=== PATIENT | male | born 1975 | race Caucasian/White ===

== ENCOUNTER 2016-05-15 09:54 | Day surgery (SDC) | payer BC, OTHER ==
[~2016-05-15 09:54] MED LIST: Pre Op ABX Message 1 EACH MISC MISCELLANE ONE
[2016-05-15 10:44] VITALS: BMI 46.1
[2016-05-15 10:45] LABS: Glucose,Whole Blood 136 mg/dL (75-99)
[2016-05-15] MEDS ORDERED: LACTATED RINGERS 1,000 ML IV SCH (10:55)
[2016-05-15] MEDS ORDERED: ONDANSETRON 4 MG/2 ML VIAL IVP ONE (10:55)
[2016-05-15] MEDS ORDERED: HYDROmorphone 1 MG/ML 1 ML SYRINGE IVP PRN (10:55)
[2016-05-15] MEDS ORDERED: DEXAMETHASONE SOD PHOSPHATE 10 MG/ML 1 ML VIAL IV ONE (10:55)
[2016-05-15] MEDS ORDERED: BUPIVACAINE LIPOSOME/PF 1.3% 20 ML, SODIUM CHLORIDE 0.9% 10 ML MISCELLANE ONE ×2 (10:55)
[2016-05-15] MEDS ORDERED: LIDOCAINE 1% 20 ML VIAL (10MG/ML) FOR IV START INTRADERMA ONE (10:59)
[2016-05-15] MEDS ORDERED: fentaNYL (PF) 50 MCG/ML 2 ML AMP ONE (13:54)
[2016-05-15] MEDS ORDERED: MIDAZOLAM 2 MG/2 ML VIAL ONE (13:54)
[2016-05-15] MEDS ORDERED: SUCCINYLCHOLINE CHLORIDE VIAL 200 MG/10 ML VIAL IV ONE (13:54)
[2016-05-15] MEDS ORDERED: PROPOFOL 10 MG/ML 20 ML VIAL IV ONE (13:54)
--- NOTE | 2016-05-15 14:39 | P.OP ---
Date of Procedure: 05/15/16 Preoperative Diagnosis: Perianal pain due to to anal fissure Postoperative Diagnosis: Anal fissure 5 o'clock position 3 mm long exposed muscle no obvious fistula Right posterior second-degree hemorrhoid not bleeding Procedure(s) Performed: Under anesthesia and infiltration of 30 mL of Exparel Anesthesia: CHIP Surgeon: Leilani Peres Pathology: none sent Condition: stable Disposition: PACU Operative Findings: Small 3 mm anal fissure 5 o'clock position secondary to right in the right posterior position of bleeding and small. Normal anal sphincter tone Description of Procedure: Patient 41-year-old male with severe painful bowel movements as been using multiple medical therapy for his anal fissure which was suspected due to inability to perform digital rectal examination. Since we were never able to confirm and I consented the patient for examining her anesthesia. After draining from simple patient was brought to the operating room placed in supine position given general anesthesia after which she was placed in the appropriate prone position. He is prepped and draped in the usual sterile surgical fashion . A well-lubricated speculum was introduced and the perianal region all the way up to the dentate now was inspected in detail. There was a 3 mm anal fissure at 5 o'clock position without any pus or bleeding or any swelling or any inflammatory changes. There was a small right posterior secondary hemorrhoids which was not bleeding. It was not amenable to banding at this time. The entire internal sphincter area was then infiltrated with Exparel 30 mL service to remove the pain. The patient did not give any consent for sphincterotomy of any sort. After this the procedure was completed and a Vaseline dressing was placed in the anus. Operation or procedure well there were no complications extubated taken to recovery room in stable condition.
[2016-05-15 15:17] VITALS: TEMP 97.9
[2016-05-15] MEDS ORDERED: KETOROLAC 30 MG/ML 1 ML VIAL IVP ONE (15:23)
[2016-05-15 15:49] LABS: Glucose,Whole Blood 174 mg/dL (75-99)
[2016-05-15 20:25] VITALS: BP 103/60; PULSE 91
[2016-05-15 20:28] VITALS: RESP 16
== END 2016-05-15 18:04 | disposition home or self-care (01) ==
LOC: OR 09:54
PROVIDERS: ATTEND Surgery
DX: K60.2 Anal fissure, unspecified (principal); K64.1 Second degree hemorrhoids; E11.9 Type 2 diabetes mellitus without complications; G47.33 Obstructive sleep apnea (adult) (pediatric); Z79.84 Long term (current) use of oral hypoglycemic drugs; Z79.1 Long term (current) use of non-steroidal anti-inflammatories (NSAID); Z79.891 Long term (current) use of opiate analgesic; Z79.899 Other long term (current) drug therapy; Z88.0 Allergy status to penicillin
CPT/HCPCS: 45990; J2250; J0330; J1100; J2405; J3010; J1885; C9290; J2704

== ENCOUNTER 2020-01-07 10:00 | Inpatient (IN) | payer OTHER ==
--- NOTE | 2020-01-07 11:06 | ED ---
URI HPI - General Chief Complaint: Upper Respiratory Infection Stated Complaint: SOB Time Seen by Provider: 01/07/20 10:11 Source: patient, RN notes reviewed Mode of arrival: wheelchair Limitations: no limitations - History of Present Illness Initial Comments: This a 44-year-old male presents emergency Department chief complaint of fever, fatigue, body aches and shortness of breath. Patient states that he has been sick since last week. Patient states the taking vitamins at home, taken Tylenol states that symptoms progressively worsening. He's had increased shortness breath. Patient states he is a known diabetic on metformin. Patient's blood s ugar has been between 1:30 and 150. He has had known sick contacts with similar symptoms. Denies any current chest pain he's had some dizziness and mild headaches. - Related Data Home Medications Medication Instructions Recorded Confirmed metFORMIN HCL [Glucophage] 500 mg PO BID 05/15/16 01/07/20 Ascorbic Acid [Vitamin C] 3,000 mg PO DAILY 01/07/20 01/07/20 Cholecalciferol [Vitamin D3 (25 3,000 unit PO DAILY 01/07/20 01/07/20 Mcg = 1000 Iu)] Multivitamins, Thera [Multivitamin 1 tab PO DAILY 01/07/20 01/07/20 (formulary)] Potassium Gluconate 99 mg PO DAILY 01/07/20 01/07/20 Allergies Allergy/AdvReac Type Severity Reaction Status Date / Time Penicillins Allergy Rash/Hives Verified 01/07/20 12:20 Review of Systems ROS Statement: Those systems with pertinent positive or pertinent negative responses have been documented in the HPI. ROS Other: All systems not noted in ROS Statement are negative. Past Medical History Past Medical History: Diabetes Mellitus, GERD/Reflux, Sleep Apnea/CPAP/BIPAP Additional Past Medical History / Comment(s): TYPE 2 DIABETES DIAG. 17/DOESNT USE HIS CPAP History of Any Multi-Drug Resistant Organisms: None Reported Past Surgical History: Orthopedic Surgery Additional Past Surgical History / Comment(s): ARTHROSCOPY RIGHT KNEE Past Anesthesia/Blood Transfusion Reactions: No Reported Reaction Past Psychological History: No Psychological Hx Reported Smoking Status: Never smoker Past Alcohol Use History: Occasional Past Drug Use History: None Reported General Exam Limitations: no limitations General appearance: alert, in no apparent distress Head exam: Present: atraumatic, normocephalic, normal inspection Eye exam: Present: normal appearance, PERRL, EOMI. Absent: scleral icterus, conjunctival injection, periorbital swelling ENT exam: Present: normal exam, normal oropharynx, mucous membranes moist Neck exam: Present: normal inspection, full ROM. Absent: tenderness, meningismus, lymphadenopathy Respiratory exam: Present: decreased breath sounds. Absent: normal lung sounds bilaterally, respiratory distress, wheezes, rales, rhonchi, stridor Cardiovascular Exam: Present: normal rhythm, tachycardia, normal heart sounds. Absent: systolic murmur, diastolic murmur, rubs, gallop, clicks GI/Abdominal exam: Present: soft, normal bowel sounds. Absent: distended, tenderness, guarding, rebound, rigid Neurological exam: Present: alert, oriented X3 Skin exam: Present: warm, dry, intact, normal color. Absent: rash Course Vital Signs 01/07/20 01/07/20 10:01 11:05 Temperature 99.8 F H Pulse Rate 107 H Respiratory 22 20 Rate Blood Pressure 140/79 O2 Sat by Pulse 91 L Oximetry Medical Decision Making - Medical Decision Making Chest x-ray consistent with covid 19 infection. Patient has positive test. Pat ient has mild hypoxia. Patient be admitted for steroids, vitamin C, zinc and D patient will be admitted - Lab Data Result diagrams: 01/07/20 11:32 Lab Results 01/07/20 01/07/20 01/07/20 Range/Units 11:32 11:32 11:32 WBC 5.3 (3.8-10.6) k/uL RBC 5.15 (4.30-5.90) m/uL Hgb 14.1 (13.0-17.5) gm/dL Hct 40.3 (39.0-53.0) % MCV 78.1 L (80.0-100.0) fL MCH 27.3 (25.0-35.0) pg MCHC 35.0 (31.0-37.0) g/dL RDW 12.7 (11.5-15.5) % Plt Count 185 (150-450) k/uL MPV 7.3 Neutrophils % 79 % Lymphocytes % 12 % Monocytes % 5 % Eosinophils % 0 % Basophils % 2 % Neutrophils # 4.2 (1.3-7.7) k/uL Lymphocytes # 0.7 L (1.0-4.8) k/uL Monocytes # 0.3 (0-1.0) k/uL Eosinophils # 0.0 (0-0.7) k/uL Basophils # 0.1 (0-0.2) k/uL Poikilocytosis Slight Plasma Lactic Acid Luis Eduardo 0.9 (0.7-2.0) mmol/L Coronavirus (PCR) Detected A (Not Detectd) - EKG Data -: EKG Interpreted by Me EKG Comments: EKG performed at 11:25 normal sinus rhythm left axis deviation rate of 93 MT 166 QRS 106 QT/QTC 374/465 Disposition Clinical Impression: Pneumonia due to COVID-19 virus, Hypoxia Disposition: ADMITTED IP TO THIS HOSP Condition: Fair Referrals: None,Stated [Primary Care Provider] - 1-2 days
[2020-01-07 11:53] LABS: Basophils # (A) 0.1 k/uL (0-0.2); Basophils % (A) 2 %; Eosinophils % (A) 0 %; HCT 40.3 % (39.0-53.0); HGB 14.1 gm/dL (13.0-17.5); Lymphocytes # (A) 0.7 k/uL (1.0-4.8); Lymphocytes % (A) 12 %; MCH 27.3 pg (25.0-35.0); MCV 78.1 fL (80.0-100.0); Mean Platelet Volume 7.3; Monocytes # (A) 0.3 k/uL (0-1.0); Monocytes % (A) 5 %; Neutrophils # (A) 4.2 k/uL (1.3-7.7); Neutrophils % (A) 79 %; Platelet Count 185 k/uL (150-450); Poikilocytosis Slight; RBC 5.15 m/uL (4.30-5.90); RDW 12.7 % (11.5-15.5); WBC 5.3 k/uL (3.8-10.6)
[2020-01-07 12:04] LABS: ALT 26 U/L (4-49); AST 37 U/L (17-59); African American GFR (CKD) >90 (>60 ml/min/1.73 sqM); Albumin 3.7 g/dL (3.5-5.0); Alkaline Phosphatase 69 U/L (38-126); Anion Gap 8 mmol/L; Blood Urea Nitrogen 11 mg/dL (9-20); Calcium 8.4 mg/dL (8.4-10.2); Carbon Dioxide 27 mmol/L (22-30); Chloride 99 mmol/L (98-107); Glucose 134 mg/dL (74-99); LDH 678 U/L (313-618); Non-African American GFR(CKD) >90 (>60 ml/min/1.73 sqM); Potassium 4.4 mmol/L (3.5-5.1); Sodium 134 mmol/L (137-145); Total Bilirubin 0.9 mg/dL (0.2-1.3); Total Protein 6.8 g/dL (6.3-8.2)
--- NOTE | 2020-01-07 12:05 | XR ---
EXAMINATION TYPE: XR chest 2V DATE OF EXAM: 01/07/2020 COMPARISON: NONE HISTORY: Chest pain TECHNIQUE: Frontal and lateral views of the chest are obtained. FINDINGS: Patchy infiltrates are seen bilaterally. Correlate for Covid 19 pneumonia. No evidence for pneumothorax. No pleural effusion. The cardiac silhouette size is within normal limits. The osseous structures are grossly intact. IMPRESSION: 1. Patchy infiltrates are seen bilaterally. Correlate for Covid 19 pneumonia.
[2020-01-07 12:53] LABS: C Reactive Protein 153.9 mg/L (<10.0)
[2020-01-07] MEDS: ASCORBIC ACID 500 MG TAB PO SCH (15:24)
[2020-01-07] MEDS: ACETAMINOPHEN TAB 500 MG TAB PO PRN ×2 (16:07→21:43)
[2020-01-07 16:09] LABS: Glucose,Whole Blood 181 mg/dL (75-99)
[2020-01-07] MEDS: INSULIN ASPART (NovoLOG) 100 UNIT/ML VIAL SQ SCH ×2 (17:24→21:43)
[2020-01-07] MEDS ORDERED: DEXAMETHASONE ORAL 4 MG/ML VIAL PO ONE (17:52)
[2020-01-07] MEDS ORDERED: ASCORBIC ACID 500 MG TAB PO ONE (17:53)
[2020-01-07] MEDS: ZINC SULFATE 220 MG CAP PO SCH (18:21)
[2020-01-07] MEDS ORDERED: dexAMETHasone 2 MG TAB PO ONE (18:30)
[2020-01-07 20:38] LABS: Glucose,Whole Blood 135 mg/dL (75-99)
--- NOTE | 2020-01-07 23:14 | P.HPIM ---
History of Present Illness H&P Date: 01/07/20 Chief Complaint: Shortness of breath and fatigue Patient is a 44-year-old male with a known history of diabetes type 2 [id number], obstructive sleep apnea on CPAP, morbid obesity with BMI 42.4, GERD came to the hospital with complaints of generalized body aches sh ortness of breath and high fever this morning. Patient has been feeling sick since last Thursday and his symptoms are progressively getting worse with increased shortness of breath and exertional dyspnea. Patient states that his initial symptoms started about 8 days ago. Patient was having high fever with T- max 104 at home today and due to worsening symptoms patient presented to ER. In the ER on admission blood pressure was 140/79, pulse 107 and temperature nine 9.8 and T-max 102.8 and pulse ox was 91% on room air. Chest x-ray showed patchy infiltrates are seen bilaterally. Correlate for C OVID-19 pneumonia. Laboratory test showed WBC 5.3, hemoglobin 14.1 and platelets 185 Sodium 134, potassium 4.4, bicarbonate 27, BUN 11 and creatinine 0.76 LDH is 678 and CRP 153.9 Code 19 PCR detected. Review of Systems Constitutional: Patient denies any fever or chills . generalized weakness and fatigue. Abdomen: Patient denied nausea vomiting and diarrhea and abdominal pain. Cardiovascular: Patient denies any chest pain or short of breath no palpitations. Respiratory: Patient does have shortness of breath and cough without sputum production. Neurologic: Patient denied any numbness or tingling headache. Musculoskeletal: Patient denies any complaints of joint swelling or deformity. Skin: Negative Psychiatric: Negative Endocrine: No heat or cold intolerance. No recent weight gain. Genitourinary: No dysuria or hematuria. All other 14 point ROS negative except the above Past Medical History Past Medical History: Diabetes Mellitus, GERD/Reflux, Sleep Apnea/CPAP/BIPAP Additional Past Medical History / Comment(s): TYPE 2 DIABETES DIAG. 2016/DOESNT USE HIS CPAP History of Any Multi-Drug Resistant Organisms: None Reported Past Surgical History: Orthopedic Surgery Additional Past Surgical History / Comment(s): ARTHROSCOPY RIGHT KNEE Past Anesthesia/Blood Transfusion Reactions: No Reported Reaction Past Psychological History: No Psychological Hx Reported Smoking Status: Never smoker Past Alcohol Use History: Occasional Past Drug Use History: None Reported Medications and Allergies Home Medications Medication Instructions Recorded Confirmed Type metFORMIN HCL [Glucophage] 500 mg PO BID 05/15/16 01/07/20 History Ascorbic Acid [Vitamin C] 3,000 mg PO DAILY 01/07/20 01/07/20 History Cholecalciferol [Vitamin D3 (25 3,000 unit PO DAILY 01/07/20 01/07/20 History Mcg = 1000 Iu)] Multivitamins, Thera [Multivitamin 1 tab PO DAILY 01/07/20 01/07/20 History (formulary)] Potassium Gluconate 99 mg PO DAILY 01/07/20 01/07/20 History Allergies Allergy/AdvReac Type Severity Reaction Status Date / Time Penicillins Allergy Rash/Hives Verified 01/07/20 12:20 Physical Exam Vitals: Vital Signs Temp Pulse Pulse Resp BP BP Pulse Ox 01/07/20 17:38 101.1 F H 100 22 125/71 91 L 01/07/20 16:24 22 01/07/20 16:00 102.8 F H 100 26 H 125/74 91 L 01/07/20 12:49 99.8 F H 100 17 115/77 92 L 01/07/20 11:05 20 01/07/20 10:01 99.8 F H 107 H 22 140/79 91 L Intake and Output 01/07/20 01/07/20 01/07/20 06:59 14:59 22:59 Other: Weight 149.685 kg 149.685 kg PHYSICAL EXAMINATION: Patient is lying in the bed comfortably, no acute distress, awake alert and oriented.. HEENT: Normocephalic. Neck is supple. Pupils reactive. Nostrils clear. Oral cavity is moist. Ears reveal no drainage. Neck reveals no JVD, carotid bruits, or thyromegaly. CHEST EXAMINATION: Trachea is central. Symmetrical expansion. Lung jaeger clear to auscultation and percussion. CARDIAC: Normal S1, S2 with no gallops. No murmurs ABDOMEN: Soft. Bowel sounds normal. No organomegaly. No abdominal bruits. Extremities: reveal no edema. No clubbing or cyanosis Neurologically awake, alert, oriented x3 with well-coordinated movements. No focal deficits noted Skin: No rash or skin lesions. Psychiatric: Coperative. Nonsuicidal Musculoskeletal: No joint swelling or deformity. Normal range of motion. Results CBC & Chem 7: 01/07/20 11:32 01/07/20 11:32 Labs: Abnormal Lab Results - Last 24 Hours (Table) 01/07/20 01/07/20 01/07/20 Range/Units 11:32 11:32 11:32 MCV 78.1 L (80.0-100.0) fL Lymphocytes # 0.7 L (1.0-4.8) k/uL Sodium 134 L (137-145) mmol/L Glucose 134 H (74-99) mg/dL POC Glucose (mg/dL) (75-99) mg/dL Lactate Dehydrogenase 678 H (313-618) U/L C-Reactive Protein 153.9 H (<10.0) mg/L Coronavirus (PCR) Detected A (Not Detectd) 01/07/20 01/07/20 Range/Units 16:08 20:37 MCV (80.0-100.0) fL Lymphocytes # (1.0-4.8) k/uL Sodium (137-145) mmol/L Glucose (74-99) mg/dL POC Glucose (mg/dL) 181 H 135 H (75-99) mg/dL Lactate Dehydrogenase (313-618) U/L C-Reactive Protein (<10.0) mg/L Coronavirus (PCR) (Not Detectd) Thrombosis Risk Factor Assmnt - DVT/VTE Prophylaxis DVT/VTE Prophylaxis: Pharmacologic Prophylaxis ordered - Choose All That Apply Any of the Below Risk Factors Present?: Yes Each Factor Represents 1 point: Age 41-60 years, Obesity (BMI >25) Other Risk Factors: No Other congenital or acquired thrombophilia - If yes, enter type in comment: No Thrombosis Risk Factor Assessment Total Risk Factor Score: 2 Thrombosis Risk Factor Assessment Level: Low Risk Assessment and Plan Assessment: Acute COVID-19 viral pneumonia. Acute hypoxic respiratory failure secondary to pneumonia Elevated tumor markers Diabetes type 2 [id number] Obstructive sleep apnea on CPAP Morbid obesity with BMI 42.4 GERD DVT and GI prophylaxis on Lovenox. Patient will be continued on contact and droplet precautions. We will start on dexamethasone 6 mg daily and Lovenox subcu 40 mg daily. Follow-up D-dimer level. Continue with oxygen therapy. Continue with ascorbic acid, vitamin D3, zinc sulfate and Pepcid twice daily. Insulin sliding scale for better blood sugar control. Continue to follow closely and further recommendations based on the clinical course. Time with Patient: Greater than 30
[2020-01-07 23:31] LABS: Ferritin 1076.4 ng/mL (22.0-322.0)
[2020-01-08] MEDS: FAMOTIDINE 20 MG TAB PO SCH ×3 (01:53→22:03)
[2020-01-08 01:54] LABS: Glucose,Whole Blood 271 mg/dL (75-99)
[2020-01-08] MEDS: ACETAMINOPHEN TAB 500 MG TAB PO PRN ×2 (05:37→17:30)
[2020-01-08 07:24] LABS: Glucose,Whole Blood 266 mg/dL (75-99)
[2020-01-08] MEDS: dexAMETHasone 2 MG TAB PO SCH (07:52)
[2020-01-08] MEDS: INSULIN ASPART (NovoLOG) 100 UNIT/ML VIAL SQ SCH ×4 (07:52→22:02)
[2020-01-08] MEDS: ASCORBIC ACID 500 MG TAB PO SCH (07:54)
[2020-01-08] MEDS: ZINC SULFATE 220 MG CAP PO SCH (07:54)
[2020-01-08] MEDS: CHOLECALCIFEROL 400 UNIT TAB PO SCH (07:54)
[2020-01-08] MEDS: ENOXAPARIN 40 MG/0.4 ML SYRINGE SQ SCH (07:55)
[2020-01-08] MEDS ORDERED: ZINC SULFATE 220 MG CAP PO SCH (09:00)
[2020-01-08 11:30] LABS: Glucose,Whole Blood 282 mg/dL (75-99)
[2020-01-08] MEDS: ALBUTEROL HFA INHALER INHALATION PRN (12:18)
[2020-01-08 16:47] LABS: Glucose,Whole Blood 246 mg/dL (75-99)
[2020-01-08] MEDS ORDERED: guaiFENesin-DM 100-10MG/5ML 10 ML CUP PO PRN (20:30)
[2020-01-08 20:57] LABS: Glucose,Whole Blood 229 mg/dL (75-99)
--- NOTE | 2020-01-09 00:26 | P.PN ---
Subjective Progress Note Date: 01/08/20 Principal diagnosis: Acute Covid 19 pneumonia Patient is a 44-year-old male with a known history of diabetes type 2 [id number], obstructive sleep apnea on CPAP, morbid obesity with BMI 42.4, GERD came to the hospital with complaints of generalized body aches shortness of breath and high fever this morning. Patient has been feeling sick since last Thursday and his symptoms are progressively getting worse with increased shortness of breath and exertional dyspnea. Patient states that his initial symptoms started about 8 days ago. Patient was having high fever with T- max 104 at home today and due to worsening symptoms patient presented to ER. In the ER on admission blood pressure was 140/79, pulse 107 and temperature nine 9.8 and T-max 102.8 and pulse ox was 91% on room air. Chest x-ray showed patchy infiltrates are seen bilaterally. Correlate for COVID-19 pneumonia. Laboratory test showed WBC 5.3, hemoglobin 14.1 and platelets 185 Sodium 134, potassium 4.4, bicarbonate 27, BUN 11 and creatinine 0.76 LDH is 678 and CRP 153.9 Code 19 PCR detected. 01/08/2020 Patient is currently lying in the bed comfortably. States that he feels better today. Currently on oxygen at 2 L via nasal cannula and saturating around 91 to 92%. Patient is being continued on dexamethasone, Lovenox and vitamin supplementation. Blood sugar is elevated in 200s and Levemir dose was added. D-dimer 0.61 and CRP 14.9. Follow-up labs tomorrow. Current medications reviewed. Objective - Vital Signs Vital signs: Vital Signs Temp 98.0 F 01/08/20 14:51 Pulse 74 01/08/20 14:51 Resp 16 01/08/20 14:51 BP 113/72 01/08/20 14:51 Pulse Ox 91 L 01/08/20 14:51 Intake & Output 01/07/20 01/08/20 01/08/20 18:59 06:59 18:59 Intake Total 250 Balance 250 Weight 149.685 kg Intake: Oral 250 Other: Voiding Method Toilet # Voids 3 2 - Exam PHYSICAL EXAMINATION: Patient is lying in the bed comfortably, no acute distress, awake alert and oriented.. HEENT: Normocephalic. Neck is supple. Pupils reactive. Nostrils clear. Oral cavity is moist. Ears reveal no drainage. Neck reveals no JVD, carotid bruits, or thyromegaly. CHEST EXAMINATION: Trachea is central. Symmetrical expansion. Lung jaeger clear to auscultation and percussion. CARDIAC: Normal S1, S2 with no gallops. No murmurs ABDOMEN: Soft. Bowel sounds normal. No organomegaly. No abdominal bruits. Extremities: reveal no edema. No clubbing or cyanosis Neurologically awake, alert, oriented x3 with well-coordinated movements. No focal deficits noted Skin: No rash or skin lesions. Psychiatric: Coperative. Nonsuicidal Musculoskeletal: No joint swelling or deformity. Normal range of motion. - Labs CBC & Chem 7: 01/07/20 11:32 01/07/20 11:32 Labs: Abnormal Lab Results - Last 24 Hours (Table) 01/07/20 01/07/20 01/08/20 Range/Units 11:32 20:37 01:52 D-Dimer (<0.60) mg/L FEU POC Glucose (mg/dL) 135 H 271 H (75-99) mg/dL Ferritin 1076.4 H (22.0-322.0) ng/mL C-Reactive Protein (0.0-0.8) mg/dL 01/08/20 01/08/20 01/08/20 Range/Units 05:31 05:31 07:22 D-Dimer 0.61 H (<0.60) mg/L FEU POC Glucose (mg/dL) 266 H (75-99) mg/dL Ferritin (22.0-322.0) ng/mL C-Reactive Protein 14.9 H (0.0-0.8) mg/dL 01/08/20 01/08/20 Range/Units 11:28 16:42 D-Dimer (<0.60) mg/L FEU POC Glucose (mg/dL) 282 H 246 H (75-99) mg/dL Ferritin (22.0-322.0) ng/mL C-Reactive Protein (0.0-0.8) mg/dL Assessment and Plan Assessment: Acute COVID-19 viral pneumonia. Acute hypoxic respiratory failure secondary to pneumonia Elevated tumor markers Diabetes type 2 [id number] Obstructive sleep apnea on CPAP Morbid obesity with BMI 42.4 GERD DVT and GI prophylaxis on Lovenox. Patient will be continued on contact and droplet precautions. on dexamethasone 6 mg daily and Lovenox subcu 40 mg daily. Follow-up D-dimer level. Continue with oxygen therapy. Continue with ascorbic acid, vitamin D3, zinc sulfate and Pepcid twice daily. Insulin sliding scale for better blood sugar control. Continue to follow closely and further recommendations based on the clinical course. Time with Patient: Greater than 30
[2020-01-09] MEDS ORDERED: INSULIN DETEMIR (LEVEMIR) 100 UNIT/ML SYR SQ SCH (00:30)
[2020-01-09] MEDS: BENZOCAINE/MENTHOL LOZENG 1 EACH LOZENGE MUCOUS MEM PRN (01:02)
[2020-01-09 07:03] LABS: Glucose,Whole Blood 216 mg/dL (75-99)
[2020-01-09] MEDS: ASCORBIC ACID 500 MG TAB PO SCH (07:37)
[2020-01-09] MEDS: INSULIN ASPART (NovoLOG) 100 UNIT/ML VIAL SQ SCH ×4 (07:37→20:58)
[2020-01-09] MEDS: ZINC SULFATE 220 MG CAP PO SCH (07:37)
[2020-01-09] MEDS: ENOXAPARIN 40 MG/0.4 ML SYRINGE SQ SCH (07:38)
[2020-01-09] MEDS: CHOLECALCIFEROL 400 UNIT TAB PO SCH (07:38)
[2020-01-09] MEDS: dexAMETHasone 2 MG TAB PO SCH (07:38)
[2020-01-09] MEDS: FAMOTIDINE 20 MG TAB PO SCH ×2 (07:38→20:58)
--- NOTE | 2020-01-09 09:00 | XR ---
EXAMINATION TYPE: XR chest 1V DATE OF EXAM: 01/09/2020 COMPARISON: 01/07/2020 HISTORY: Chest pain TECHNIQUE: Single frontal view of the chest is obtained. FINDINGS: There is improvement in infiltrates noted within the left upper lobe and to a lesser extent the right upper lobe. The cardiac silhouette size is within normal limits. The osseous structures are intact. IMPRESSION: 1. There is improvement in infiltrates noted within the left upper lobe and to a lesser extent the r ight upper lobe.
[2020-01-09] MEDS: ALBUTEROL HFA INHALER INHALATION PRN ×2 (09:11→12:33)
--- NOTE | 2020-01-09 09:24 | P.PN ---
Subjective from records Patient is a 44-year-old male with a known history of diabetes type 2 [id number], obstructive sleep apnea on CPAP, morbid obesity with BMI 42.4, GERD came to the hospital with complaints of generalized body aches shortness of breath and high fever this morning. Patient has been feeling sick since last Thursday and his symptoms are progressively getting worse with increased shortness of breath and exertional dyspnea. Patient states that his initial symptoms started about 8 days ago. Patient was having high fever with T- max 104 at home today and due to worsening symptoms patient presented to ER. In the ER on admission blood pressure was 140/79, pulse 107 and temperature nine 9.8 and T-max 102.8 and pulse ox was 91% on room air. Chest x-ray showed patchy infiltrates are seen bilaterally. Correlate for COVID-19 pneumonia. Laboratory test showed WBC 5.3, hemoglobin 14.1 and platelets 185 Sodium 134, potassium 4.4, bicarbonate 27, BUN 11 and creatinine 0.76 LDH is 678 and CRP 153.9 Code 19 PCR detected. 01/08/2020 Patient is currently lying in the bed comfortably. States that he feels better today. Currently on oxygen at 2 L via nasal cannula and saturating around 91 to 92%. Patient is being continued on dexamethasone, Lovenox and vitamin supplementation. Blood sugar is elevated in 200s and Levemir dose was added. D-dimer 0.61 and CRP 14.9. Follow-up labs tomorrow. Subjective This is the first day I am taking care of the patient 01/09/2020 This is a pleasant 44 years old male with past medical history of type 2 diabetes mellitus on metformin. Presents with respiratory distress and found to have Covid pneumonia. Patient was placed on ascorbic acid, zinc sulfate and dexamethasone 6 mg oral daily as well as prophylactic dose of Lovenox. Patient today feels better, he still have coughing and asking for cough medicine which is changed to schedule. No significant dyspnea at rest. No chest pain. If he is a little bit off balance on standing up. He is been asking his diet to change to diabetic diet because he was trying to lose weight intentionally lately. However he is already on low carbohydrate diet. He is saturating 91% and 2 L oxygen via nasal cannula. Chest x-ray today showing improvement in infiltrates in the left upper lobe and lesser extent in the right upper We will consult pulmonary service for further management CONSTITUTIONAL: No fever, no malaise, no fatigue. HEENT: No recent visual problems or hearing problems. Denied any sore throat. CARDIOVASCULAR: No orthopnea, PND, no palpitations, no syncope. PULMONARY: No chest wall tenderness, no hemoptysis. GASTROINTESTINAL: No diarrhea, no nausea, no vomiting, no abdominal pain. Normoactive bowel sounds. NEUROLOGICAL: No headaches, no weakness, no numbness. Active Medications Generic Name Dose Route Start Last Admin Trade Name Freq PRN Reason Stop Dose Admin Acetaminophen 1,000 mg 01/07/20 12:36 01/08/20 17:30 Acetaminophen Tab 500 Mg Tab PO 1,000 mg Q6HR PRN Administration Fever>101 Albuterol Sulfate 2 puff 01/07/20 12:36 01/09/20 09:11 Albuterol Hfa Inhaler INHALATION 2 puff RT-Q6H PRN Administration Shortness Of Breath Or Wheezing Ascorbic Acid 1,000 mg 01/07/20 12:45 01/09/20 07:37 Ascorbic Acid 500 Mg Tab PO 1,000 mg DAILY JACQUELINE Administration Benzocaine/Menthol 1 each 01/08/20 18:07 01/09/20 01:02 Benzocaine/Menthol Lozeng 1 Each Lozenge MUCOUS MEM 1 each Q6HR PRN Administration Sore Throat Cholecalciferol 400 unit 01/08/20 09:00 01/09/20 07:38 Cholecalciferol 400 Unit Tab PO 400 unit DAILY JACQUELINE Administration Dexamethasone 6 mg 01/08/20 09:00 01/09/20 07:38 Dexamethasone 2 Mg Tab PO 01/18/20 09:01 6 mg DAILY JACQUELINE Administration Enoxaparin Sodium 40 mg 01/08/20 09:00 01/09/20 07:38 Enoxaparin 40 Mg/0.4 Ml Syringe SQ 40 mg Q24HR JACQUELINE Administration Famotidine 20 mg 01/07/20 23:15 01/09/20 07:38 Famotidine 20 Mg Tab PO 20 mg BID JACQUELINE Administration Guaifenesin/Dextromethorphan 10 ml 01/09/20 09:30 Guaifenesin-Dm 100-10mg/5ml 10 Ml Cup PO Q8H JACQUELINE Insulin Aspart 0 unit 01/07/20 17:30 01/09/20 07:37 Insulin Aspart (Novolog) 100 Unit/Ml Vial SQ 7 unit ACHS JACQUELINE Administration Protocol Insulin Detemir 10 unit 01/09/20 00:30 01/09/20 01:03 Insulin Detemir (Levemir) 100 Unit/Ml Syr SQ 10 unit HS JACQUELINE Administration Zinc Sulfate 220 mg 01/07/20 18:00 01/09/20 07:37 Zinc Sulfate 220 Mg Cap PO 220 mg DAILY JACQUELINE Administration Objective - Vital Signs Vital signs: Vital Signs Temp 97.7 F 01/09/20 05:15 Pulse 68 01/09/20 05:15 Resp 20 01/09/20 05:15 BP 114/48 01/09/20 05:15 Pulse Ox 92 L 01/09/20 05:15 Intake & Output 01/08/20 01/09/20 01/09/20 18:59 06:59 18:59 Other: Voiding Method Toilet # Voids 2 3 - Exam GENERAL: The patient is alert and oriented x3, not in any acute distress. Well developed, well nourished. HEENT: Pupils are round and equally reacting to light. EOMI. No scleral icterus. No conjunctival pallor. Normocephalic, atraumatic. No pharyngeal erythema. No thyromegaly. CARDIOVASCULAR: S1 and S2 present. No murmurs, rubs, or gallops. PULMONARY: Chest is clear to auscultation, no wheezing or crackles. ABDOMEN: Soft, nontender, nondistended, normoactive bowel sounds. No palpable organomegaly. MUSCULOSKELETAL: No joint swelling or deformity. EXTREMITIES: No cyanosis, clubbing, or pedal edema. NEUROLOGICAL: Gross neurological examination did not reveal any focal deficits. SKIN: No rashes. no petechiae. - Labs CBC & Chem 7: 01/07/20 11:32 01/07/20 11:32 Labs: Abnormal Lab Results - Last 24 Hours (Table) 01/08/20 01/08/20 01/08/20 Range/Units 05:31 11:28 16:42 D-Dimer (<0.60) mg/L FEU POC Glucose (mg/dL) 282 H 246 H (75-99) mg/dL C-Reactive Protein 14.9 H (0.0-0.8) mg/dL 01/08/20 01/09/20 01/09/20 Range/Units 20:54 05:50 06:59 D-Dimer 0.82 H (<0.60) mg/L FEU POC Glucose (mg/dL) 229 H 216 H (75-99) mg/dL C-Reactive Protein (0.0-0.8) mg/dL Assessment and Plan Assessment: Acute bilateral upper lobe COVID-19 viral pneumonia. Acute hypoxic respiratory failure secondary to pneumonia Elevated tumor markers Diabetes type 2 [id number] Obstructive sleep apnea on CPAP Morbid obesity with BMI 42.4 GERD Plan: This is a pleasant 44 years old male who presents with colic pneumonia. Continue with dexamethasone. Continue with ascorbic acid as insufflated. Consult pulmonary service. Continue with oxygen as needed. Continue with Levemir insulin and adjust dose accordingly. Resume his metformin upon discharge Labs and medication were reviewed.. Continue same treatment. Continue with symptomatic treatment. Resume home medication. Monitor lytes and vitals. DVT and GI prophylaxis. Further recommendationsas per clinical course of the patient DVT prophylaxis: Subcutaneous Lovenox GI Prophylaxis: Pepcid prognosis is guarded
[2020-01-09 09:40] LABS: African American GFR (CKD) 127.7 (60.0-200.0); Anion Gap 11.1 mmol/L (4.00-12.00); C Reactive Protein 6.3 mg/dL (0.0-0.8); Calcium 8.6 mg/dL (8.7-10.3); Carbon Dioxide 26.9 mmol/L (21.6-31.8); Non-African American GFR(CKD) 110.2 (60.0-200.0); Potassium 4.3 mmol/L (3.5-5.5)
[2020-01-09 09:51] LABS: Ferritin 1572.5 ng/mL (22.0-322.0)
[2020-01-09] MEDS: guaiFENesin-DM 100-10MG/5ML 10 ML CUP PO SCH ×2 (10:41→17:17)
[2020-01-09 11:36] LABS: Glucose,Whole Blood 214 mg/dL (75-99)
[2020-01-09] MEDS ORDERED: REMDESIVIR (EUA) 200 MG in SODIUM CHLORIDE 0.9% 250 ML IVPB ONE (12:00)
--- NOTE | 2020-01-09 16:26 | P.CNPUL ---
History of Present Illness Consult date: 01/09/20 Requesting physician: Panchito Clifton Reason for consult: dyspnea Chief complaint: Dyspnea, body aches, high fever History of present illness: 44-year-old the male patient with past medical history of type 2 diabetes mellitus, morbid obesity, obstructive sleep apnea on CPAP, GERD/reflux, who came into the hospital on 01/07/2020 with complaints of generalized body aches, shortness of breath and high fevers. Patient states his onset of symptoms was last Thursday, and became progressively worse with increasing shortness of breath and exertional dyspnea. Initial symptom onset was approximately 8 days prior to presentation. In the emergency department patient was febrile with a T-max of 104, chest x-ray showing patchy infiltrates bilaterally, increased inflammatory markers with LDH of 678 and CRP of 153.9. Crit with 19 PCR was positive, d-dimer was 0.61. Patient was started on oral Decadron, vitamin C, zinc supplement, Pepcid, and prophylactic doses of Lovenox at 40 mg every 24 hours for a d-dimer of 0.61. Follow-up chest x-ray today shows improvement in the appearance of infiltrates and within the left upper lobe to a lesser extent in the right upper lobe. Patient states he still dyspneic but overall feeling and breathing better. He has been afebrile overnight. Review of Systems All systems: negative Constitutional: Denies chills, Denies fever Eyes: denies blurred vision, denies pain Ears, nose, mouth and throat: Denies headache, Denies sore throat Cardiovascular: Denies chest pain, Denies shortness of breath Respiratory: Reports dyspnea, Denies cough Gastrointestinal: Denies abdominal pain, Denies diarrhea, Denies nausea, Denies vomiting Musculoskeletal: Denies myalgias Integumentary: Denies pruritus, Denies rash Neurological: Denies numbness, Denies weakness Psychiatric: Denies anxiety, Denies depression Endocrine: Denies fatigue, Denies weight change Past Medical History Past Medical History: Diabetes Mellitus, GERD/Reflux, Sleep Apnea/CPAP/BIPAP Additional Past Medical History / Comment(s): TYPE 2 DIABETES DIAG. 2016/DOESNT USE HIS CPAP History of Any Multi-Drug Resistant Organisms: None Reported Past Surgical History: Orthopedic Surgery Additional Past Surgical History / Comment(s): ARTHROSCOPY RIGHT KNEE Past Anesthesia/Blood Transfusion Reactions: No Reported Reaction Past Psychological History: No Psychological Hx Reported Smoking Status: Never smoker Past Alcohol Use History: Occasional Past Drug Use History: None Reported Medications and Allergies Home Medications Medication Instructions Recorded Confirmed Type metFORMIN HCL [Glucophage] 500 mg PO BID 05/15/16 01/07/20 History Ascorbic Acid [Vitamin C] 3,000 mg PO DAILY 01/07/20 01/07/20 History Cholecalciferol [Vitamin D3 (25 3,000 unit PO DAILY 01/07/20 01/07/20 History Mcg = 1000 Iu)] Multivitamins, Thera [Multivitamin 1 tab PO DAILY 01/07/20 01/07/20 History (formulary)] Potassium Gluconate 99 mg PO DAILY 01/07/20 01/07/20 History Allergies Allergy/AdvReac Type Severity Reaction Status Date / Time Penicillins Allergy Rash/Hives Verified 01/07/20 12:20 Physical Exam Vitals: Vital Signs Temp Pulse Resp BP BP BP Pulse Ox 01/09/20 13:55 97.7 F 66 18 92/58 93 L 01/09/20 09:52 97.5 F L 77 18 100/63 91 L 01/09/20 07:30 20 01/09/20 05:15 97.7 F 68 20 114/48 92 L 01/09/20 03:34 97.8 F 72 16 108/62 91 L 01/08/20 23:20 75 18 01/08/20 20:24 97.5 F L 75 18 103/64 91 L 01/08/20 19:35 75 16 01/08/20 18:21 98.0 F 75 16 93/56 90 L Intake and Output 01/09/20 01/09/20 01/09/20 06:59 14:59 22:59 Other: Voiding Method Toilet # Voids 3 2 GENERAL EXAM: Alert, very pleasant, obese male, sitting up in a recliner, currently on 2 L of oxygen a pulse ox of 93% comfortable in no apparent distress. HEAD: Normocephalic/atraumatic. EYES: Normal reaction of pupils, equal size. Conjunctiva pink, sclera white. NOSE: Clear with pink turbinates. THROAT: No erythema or exudates. NECK: No masses, no JVD, no thyroid enlargement, no adenopathy. CHEST: No chest wall deformity. Symmetrical expansion. LUNGS: Equal air entry with basilar crackles, but no wheeze, rhonchi or dullness. CVS: Regular rate and rhythm, normal S1 and S2, no gallops, no murmurs, no rubs ABDOMEN: Soft, nontender. No hepatosplenomegaly, normal bowel sounds, no guarding or rigidity. EXTREMITIES: No clubbing, no edema, no cyanosis, 2+ pulses and upper and lower extremities. MUSCULOSKELETAL: Muscle strength and tone normal. SPINE: No scoliosis or deformity SKIN: No rashes CENTRAL NERVOUS SYSTEM: Alert and oriented -3. No focal deficits, tone is normal in all 4 extremities. PSYCHIATRIC: Alert and oriented -3. Appropriate affect. Intact judgment and insight. Results - Laboratory Findings CBC and BMP: 01/07/20 11:32 01/09/20 05:50 PT/INR, D-dimer D-Dimer 0.82 mg/L FEU (<0.60) H 01/09/20 05:50 Abnormal lab findings: Abnormal Labs 01/07/20 01/07/20 01/07/20 11:32 11:32 11:32 MCV 78.1 L Lymphocytes # 0.7 L D-Dimer Sodium 134 L Glucose 134 H POC Glucose (mg/dL) Calcium Ferritin 1076.4 H Lactate Dehydrogenase 678 H C-Reactive Protein 153.9 H Coronavirus (PCR) Detected A 01/07/20 01/07/20 01/08/20 16:08 20:37 01:52 MCV Lymphocytes # D-Dimer Sodium Glucose POC Glucose (mg/dL) 181 H 135 H 271 H Calcium Ferritin Lactate Dehydrogenase C-Reactive Protein Coronavirus (PCR) 01/08/20 01/08/20 01/08/20 05:31 05:31 07:22 MCV Lymphocytes # D-Dimer 0.61 H Sodium Glucose POC Glucose (mg/dL) 266 H Calcium Ferritin Lactate Dehydrogenase C-Reactive Protein 14.9 H Coronavirus (PCR) 01/08/20 01/08/20 01/08/20 11:28 16:42 20:54 MCV Lymphocytes # D-Dimer Sodium Glucose POC Glucose (mg/dL) 282 H 246 H 229 H Calcium Ferritin Lactate Dehydrogenase C-Reactive Protein Coronavirus (PCR) 01/09/20 01/09/20 01/09/20 05:50 05:50 06:59 MCV Lymphocytes # D-Dimer 0.82 H Sodium Glucose 214 H POC Glucose (mg/dL) 216 H Calcium 8.6 L Ferritin 1572.5 H Lactate Dehydrogenase 248 H C-Reactive Protein 6.3 H Coronavirus (PCR) 01/09/20 11:33 MCV Lymphocytes # D-Dimer Sodium Glucose POC Glucose (mg/dL) 214 H Calcium Ferritin Lactate Dehydrogenase C-Reactive Protein Coronavirus (PCR) - Diagnostic Findings Chest x-ray: report reviewed, image reviewed Assessment and Plan Plan: Assessment: #1. Acute hypoxic respiratory failure related to COVID 19 of related pneum onitis, started on a Remdesivir on 01/09/2020 #2. Fever, body aches, shortness of breath, related to acute COVID 19 infection #3. Increased inflammatory markers related to the above #4. Morbid obesity #5. Obstructive sleep apnea noncompliant with CPAP #6. Diabetes mellitus type 2 #7. Lifetime nonsmoker Plan: We'll start the patient on Remdesivir, continue on current dose of Lovenox, continue with Decadron, patient has been afebrile, continue monitoring febrile pattern, oxygenation pattern, inflammatory markers are improving, we'll continue to follow I performed a history & physical examination of the patient and discussed their management with my nurse practitioner, Sonia Johns. I reviewed the nurse practitioner's note and agree with the documented findings and plan of care. Lung sounds are positive for bibasilar crackles. The findings and the impression was discussed with the patient. I attest to the documentation by the nurse practitioner. Time with Patient: Greater than 30
[2020-01-09 16:31] LABS: Glucose,Whole Blood 250 mg/dL (75-99)
[2020-01-09 20:55] LABS: Glucose,Whole Blood 241 mg/dL (75-99)
[2020-01-09] MEDS: INSULIN DETEMIR (LEVEMIR) 100 UNIT/ML SYR SQ SCH (20:59)
[2020-01-10] MEDS: guaiFENesin-DM 100-10MG/5ML 10 ML CUP PO SCH ×3 (01:56→17:09)
[2020-01-10] MEDS: ACETAMINOPHEN TAB 500 MG TAB PO PRN ×3 (05:29→20:19)
[2020-01-10 06:39] LABS: Glucose,Whole Blood 151 mg/dL (75-99)
[2020-01-10] MEDS: FAMOTIDINE 20 MG TAB PO SCH ×2 (07:58→20:19)
[2020-01-10] MEDS: INSULIN ASPART (NovoLOG) 100 UNIT/ML VIAL SQ SCH ×4 (07:58→20:19)
[2020-01-10] MEDS: ENOXAPARIN 40 MG/0.4 ML SYRINGE SQ SCH (07:58)
[2020-01-10] MEDS: ZINC SULFATE 220 MG CAP PO SCH (07:59)
[2020-01-10] MEDS: dexAMETHasone 2 MG TAB PO SCH (07:59)
[2020-01-10] MEDS: ASCORBIC ACID 500 MG TAB PO SCH (07:59)
[2020-01-10] MEDS: CHOLECALCIFEROL 400 UNIT TAB PO SCH (07:59)
[2020-01-10] MEDS: ALBUTEROL HFA INHALER INHALATION PRN (08:27)
[2020-01-10 10:03] LABS: C Reactive Protein 2.4 mg/dL (0.0-0.8)
[2020-01-10 10:32] LABS: Ferritin 1205.8 ng/mL (22.0-322.0)
[2020-01-10 11:47] LABS: Glucose,Whole Blood 170 mg/dL (75-99)
[2020-01-10] MEDS ORDERED: REMDESIVIR (EUA) 100 MG in SODIUM CHLORIDE 0.9% 250 ML IVPB SCH (12:00)
--- NOTE | 2020-01-10 12:54 | P.PN ---
Subjective from records Patient is a 44-year-old male with a known history of diabetes type 2 [id number], obstructive sleep apnea on CPAP, morbid obesity with BMI 42.4, GERD came to the hospital with complaints of generalized body aches shortness of breath and high fever this morning. Patient has been feeling sick since last Thursday and his symptoms are progressively getting worse with increased shortness of breath and exertional dyspnea. Patient states that his initial symptoms started about 8 days ago. Patient was having high fever with T- max 104 at home today and due to worsening symptoms patient presented to ER. In the ER on admission blood pressure was 140/79, pulse 107 and temperature nine 9.8 and T-max 102.8 and pulse ox was 91% on room air. Chest x-ray showed patchy infiltrates are seen bilaterally. Correlate for COVID-19 pneumonia. Laboratory test showed WBC 5.3, hemoglobin 14.1 and platelets 185 Sodium 134, potassium 4.4, bicarbonate 27, BUN 11 and creatinine 0.76 LDH is 678 and CRP 153.9 Code 19 PCR detected. 01/08/2020 Patient is currently lying in the bed comfortably. States that he feels better today. Currently on oxygen at 2 L via nasal cannula and saturating around 91 to 92%. Patient is being continued on dexamethasone, Lovenox and vitamin supplementation. Blood sugar is elevated in 200s and Levemir dose was added. D-dimer 0.61 and CRP 14.9. Follow-up labs tomorrow. Subjective: 01/09/2020 This is a pleasant 44 years old male with past medical history of type 2 diabetes mellitus on metformin. Presents with respiratory distress and found to have Covid pneumonia. Patient was placed on ascorbic acid, zinc sulfate and dexamethasone 6 mg oral daily as well as prophylactic dose of Lovenox. Patient today feels better, he still have coughing and asking for cough medicine which is changed to schedule. No significant dyspnea at rest. No chest pain. If he is a little bit off balance on standing up. He is been asking his diet to change to diabetic diet because he was trying to lose weight intentionally lately. However he is already on low carbohydrate diet. He is saturating 91% and 2 L oxygen via nasal cannula. Chest x-ray today showing improvement in infiltrates in the left upper lobe and lesser extent in the right upper We will consult pulmonary service for further management 01/10/2020 Patient is still being treated for Covid pneumonia. His respiratory efforts look the same 3 yesterday. He was complaining of from some mild headache which is treated symptomatically. Blood pressure 101/62, heart rate 71, breathing at 16-17, afebrile for more than 48 hours and he is saturating 94% on 2 L oxygen via nasal cannula Inflammatory markers still slightly elevated with slight improvement. Sugar is controlled. D-dimer slightly increased from 0.8 up to 1.1 Patient remains on oral dexamethasone, Lovenox and vitamin supplementation. Also patient is on Remdesivir. CONSTITUTIONAL: No fever, no malaise, no fatigue. HEENT: No recent visual problems or hearing problems. Denied any sore throat. CARDIOVASCULAR: No orthopnea, PND, no palpitations, no syncope. PULMONARY: No chest wall tenderness, no hemoptysis. GASTROINTESTINAL: No diarrhea, no nausea, no vomiting, no abdominal pain. Normoactive bowel sounds. NEUROLOGICAL: No headaches, no weakness, no numbness. Active Medications Generic Name Dose Route Start Last Admin Trade Name Kevenq PRN Reason Stop Dose Admin Acetaminophen 1,000 mg 01/07/20 12:36 01/10/20 11:52 Acetaminophen Tab 500 Mg Tab PO 1,000 mg Q6HR PRN Administration Fever>101 Albuterol Sulfate 2 puff 01/07/20 12:36 01/10/20 08:27 Albuterol Hfa Inhaler INHALATION 2 puff RT-Q6H PRN Administration Shortness Of Breath Or Wheezing Ascorbic Acid 1,000 mg 01/07/20 12:45 01/10/20 07:59 Ascorbic Acid 500 Mg Tab PO 1,000 mg DAILY JACQUELINE Administration Benzocaine/Menthol 1 each 01/08/20 18:07 01/09/20 01:02 Benzocaine/Menthol Lozeng 1 Each Lozenge MUCOUS MEM 1 each Q6HR PRN Administration Sore Throat Cholecalciferol 400 unit 01/08/20 09:00 01/10/20 07:59 Cholecalciferol 400 Unit Tab PO 400 unit DAILY JACQUELINE Administration Dexamethasone 6 mg 01/08/20 09:00 01/10/20 07:59 Dexamethasone 2 Mg Tab PO 01/18/20 09:01 6 mg DAILY JACQUELINE Administration Enoxaparin Sodium 40 mg 01/08/20 09:00 01/10/20 07:58 Enoxaparin 40 Mg/0.4 Ml Syringe SQ 40 mg Q24HR JACQUELINE Administration Famotidine 20 mg 01/07/20 23:15 01/10/20 07:58 Famotidine 20 Mg Tab PO 20 mg BID JACQUELINE Administration Guaifenesin/Dextromethorphan 10 ml 01/09/20 09:30 01/10/20 08:01 Guaifenesin-Dm 100-10mg/5ml 10 Ml Cup PO 10 ml Q8H JACQUELINE Administration Remdesivir 100 mg/ Sodium 250 mls @ 250 mls/hr 01/10/20 12:00 01/10/20 11:49 Chloride IVPB 01/13/20 12:59 Not Given DAILY@1200 JACQUELINE Insulin Aspart 0 unit 01/07/20 17:30 01/10/20 11:52 Insulin Aspart (Novolog) 100 Unit/Ml Vial SQ 3 unit ACHS JACQUELINE Administration Protocol Insulin Detemir 15 unit 01/09/20 21:00 01/09/20 20:59 Insulin Detemir (Levemir) 100 Unit/Ml Syr SQ 15 unit HS JACQUELINE Administration Zinc Sulfate 220 mg 01/07/20 18:00 01/10/20 07:59 Zinc Sulfate 220 Mg Cap PO 220 mg DAILY JACQUELINE Administration Objective - Vital Signs Vital signs: Vital Signs Temp 97.6 F 01/10/20 09:50 Pulse 71 01/10/20 09:50 Resp 16 01/10/20 09:50 BP 101/62 01/10/20 09:50 Pulse Ox 94 L 01/10/20 09:50 Intake & Output 01/09/20 01/10/20 01/10/20 18:59 06:59 18:59 Other: Voiding Method Toilet Toilet # Voids 2 2 - Exam GENERAL: The patient is alert and oriented x3, not in any acute distress. Well developed, well nourished. HEENT: Pupils are round and equally reacting to light. EOMI. No scleral icterus. No conjunctival pallor. Normocephalic, atraumatic. No pharyngeal erythema. No thyromegaly. CARDIOVASCULAR: S1 and S2 present. No murmurs, rubs, or gallops. PULMONARY: Chest is clear to auscultation, no wheezing or crackles. ABDOMEN: Soft, nontender, nondistended, normoactive bowel sounds. No palpable organomegaly. MUSCULOSKELETAL: No joint swelling or deformity. EXTREMITIES: No cyanosis, clubbing, or pedal edema. NEUROLOGICAL: Gross neurological examination did not reveal any focal deficits. SKIN: No rashes. no petechiae. - Labs CBC & Chem 7: 01/07/20 11:32 01/09/20 05:50 Labs: Abnormal Lab Results - Last 24 Hours (Table) 01/09/20 01/09/20 01/10/20 Range/Units 16:27 20:52 06:09 D-Dimer 1.16 H (<0.60) mg/L FEU POC Glucose (mg/dL) 250 H 241 H (75-99) mg/dL Ferritin (22.0-322.0) ng/mL C-Reactive Protein (0.0-0.8) mg/dL 01/10/20 01/10/20 01/10/20 Range/Units 06:09 06:37 11:45 D-Dimer (<0.60) mg/L FEU POC Glucose (mg/dL) 151 H 170 H (75-99) mg/dL Ferritin 1205.8 H (22.0-322.0) ng/mL C-Reactive Protein 2.4 H (0.0-0.8) mg/dL Assessment and Plan Assessment: Acute bilateral upper lobe COVID-19 viral pneumonia. Acute hypoxic respiratory failure secondary to pneumonia Elevated tumor markers Diabetes type 2 [id number] Obstructive sleep apnea on CPAP Morbid obesity with BMI 42.4 GERD Plan: This is a pleasant 44 years old male who presents with colic pneumonia. Continue with dexamethasone. Continue with ascorbic acid as insufflated. Consult pulmonary service. Continue with oxygen as needed. Continue with Levemir insulin and adjust dose accordingly. Resume his metformin upon discharge Labs and medication were reviewed.. Continue same treatment. Continue with symptomatic treatment. Resume home medication. Monitor lytes and vitals. DVT and GI prophylaxis. Further recommendationsas per clinical course of the patient DVT prophylaxis: Subcutaneous Lovenox GI Prophylaxis: Pepcid prognosis is guarded
[2020-01-10 16:48] LABS: Glucose,Whole Blood 248 mg/dL (75-99)
--- NOTE | 2020-01-10 19:53 | P.PN ---
Subjective Progress Note Date: 01/10/20 Principal diagnosis: Acute covid 19 pneumonitis 44-year-old the male patient with past medical history of type 2 diabetes mellitus, morbid obesity, obstructive sleep apnea on CPAP, GERD/reflux, who came into the hospital on 01/07/2020 with complaints of generalized body aches, s hortness of breath and high fevers. Patient states his onset of symptoms was last Thursday, and became progressively worse with increasing shortness of breath and exertional dyspnea. Initial symptom onset was approximately 8 days prior to presentation. In the emergency department patient was febrile with a T-max of 104, chest x-ray showing patchy infiltrates bilaterally, increased inflammatory markers with LDH of 678 and CRP of 153.9. Crit with 19 PCR was positive, d-dimer was 0.61. Patient was started on oral Decadron, vitamin C, zinc supplement, Pepcid, and prophylactic doses of Lovenox at 40 mg every 24 hours for a d-dimer of 0.61. Follow-up chest x-ray today shows improvement in t he appearance of infiltrates and within the left upper lobe to a lesser extent in the right upper lobe. Patient states he still dyspneic but overall feeling and breathing better. He has been afebrile overnight. Patient was reevaluated today on 01/10/20, patient feels generally weak, not significantly short of breath, he does have intermittent cough. Patient is mostly complaining of headaches, he is afebrile, his vital signs are stable, and his inflammatory markers are improving. Patient remains on dexamethasone, Lovenox, vitamins, and he declined treatment with remdesivir. Objective - Vital Signs Vital signs: Vital Signs Temp 97.8 F 01/10/20 17:45 Pulse 65 01/10/20 17:45 Resp 18 01/10/20 17:45 BP 114/71 01/10/20 17:45 Pulse Ox 97 01/10/20 17:45 Intake & Output 01/10/20 01/10/20 01/11/20 06:59 18:59 06:59 Intake Total 500 Balance 500 Intake: Oral 500 Other: Voiding Method Toilet Toilet Toilet # Voids 2 - Exam GENERAL EXAM: Alert, very pleasant, obese male, in no distress, on 2 L nasal cannula, and O2 saturations 97% HEAD: Normocephalic/atraumatic. EYES: Normal reaction of pupils, equal size. Conjunctiva pink, sclera white. NOSE: Clear with pink turbinates. THROAT: No erythema or exudates. NECK: No masses, no JVD, no thyroid enlargement, no adenopathy. CHEST: No chest wall deformity. Symmetrical expansion. LUNGS: Equal air entry with basilar crackles, but no wheeze, rhonchi or dullness. CVS: Regular rate and rhythm, normal S1 and S2, no gallops, no murmurs, no rubs ABDOMEN: Soft, nontender. No hepatosplenomegaly, normal bowel sounds, no guarding or rigidity. EXTREMITIES: No clubbing, no edema, no cyanosis, 2+ pulses and upper and lower extremities. MUSCULOSKELETAL: Muscle strength and tone normal. SPINE: No scoliosis or deformity SKIN: No rashes CENTRAL NERVOUS SYSTEM: Alert and oriented -3. No focal deficits, tone is normal in all 4 extremities. PSYCHIATRIC: Alert and oriented -3. Appropriate affect. Intact judgment and insight. - Labs CBC & Chem 7: 01/07/20 11:32 01/09/20 05:50 Labs: Abnormal Lab Results - Last 24 Hours (Table) 01/09/20 01/10/20 01/10/20 Range/Units 20:52 06:09 06:09 D-Dimer 1.16 H (<0.60) mg/L FEU POC Glucose (mg/dL) 241 H (75-99) mg/dL Ferritin 1205.8 H (22.0-322.0) ng/mL C-Reactive Protein 2.4 H (0.0-0.8) mg/dL 01/10/20 01/10/20 01/10/20 Range/Units 06:37 11:45 16:46 D-Dimer (<0.60) mg/L FEU POC Glucose (mg/dL) 151 H 170 H 248 H (75-99) mg/dL Ferritin (22.0-322.0) ng/mL C-Reactive Protein (0.0-0.8) mg/dL Assessment and Plan Assessment: Impression: Acute hypoxic respiratory failure secondary to covid 19 pneumonitis. Morbid obesity. Obstructive sleep apnea syndrome, noncompliant with CPAP. Type 2 diabetes. Recommendation: Patient declined treatment with remdesivir Continue Lovenox, Decadron, and consider discharge planning in the next 24 hours. Time with Patient: Less than 30
[2020-01-10 20:13] LABS: Glucose,Whole Blood 195 mg/dL (75-99)
[2020-01-10] MEDS: BENZOCAINE/MENTHOL LOZENG 1 EACH LOZENGE MUCOUS MEM PRN (20:19)
[2020-01-10] MEDS: INSULIN DETEMIR (LEVEMIR) 100 UNIT/ML SYR SQ SCH (20:20)
[2020-01-11] MEDS: guaiFENesin-DM 100-10MG/5ML 10 ML CUP PO SCH ×2 (01:21→07:42)
[2020-01-11 06:52] LABS: Glucose,Whole Blood 153 mg/dL (75-99)
--- NOTE | 2020-01-11 07:21 | XR ---
EXAMINATION TYPE: XR chest 1V portable DATE OF EXAM: 01/11/2020 CLINICAL HISTORY: Difficulty breathing covid 19 progress study. TECHNIQUE: Single AP portable frontal view of the chest is obtained. COMPARISON: Chest x-ray from 2 and 4 days earlier FINDINGS: Exam remains suboptimal due to portable technique and patient's large body habitus. Persis tent multifocal left lung opacities with more faint right midlung opacities on background low lung vo lumes. Cardiac silhouette size is stable and upper limits of normal. No pleural effusion or pneumotho rax seen bilaterally. Osseous structures are intact. IMPRESSION: Persistent low lung volumes with multifocal left greater than right acute infiltrates cor relates with patient's history of covid-19 infection. No significant change from prior studies.
[2020-01-11] MEDS: ALBUTEROL HFA INHALER INHALATION PRN ×2 (07:28→11:05)
[2020-01-11] MEDS: INSULIN ASPART (NovoLOG) 100 UNIT/ML VIAL SQ SCH ×2 (07:42→12:21)
[2020-01-11] MEDS: ENOXAPARIN 40 MG/0.4 ML SYRINGE SQ SCH (07:43)
[2020-01-11] MEDS: CHOLECALCIFEROL 400 UNIT TAB PO SCH (07:43)
[2020-01-11] MEDS: dexAMETHasone 2 MG TAB PO SCH (07:43)
[2020-01-11] MEDS: ASCORBIC ACID 500 MG TAB PO SCH (07:43)
[2020-01-11] MEDS: FAMOTIDINE 20 MG TAB PO SCH (07:43)
[2020-01-11] MEDS: ZINC SULFATE 220 MG CAP PO SCH (07:43)
[2020-01-11] MEDS: ACETAMINOPHEN TAB 500 MG TAB PO PRN (07:48)
[2020-01-11 09:48] VITALS: BP 109/68; PULSE 66; TEMP 97.4
[2020-01-11 10:02] LABS: C Reactive Protein 1.1 mg/dL (0.0-0.8)
[2020-01-11 11:32] LABS: Ferritin 1076.9 ng/mL (22.0-322.0)
[2020-01-11 11:39] LABS: Glucose,Whole Blood 204 mg/dL (75-99)
[2020-01-11 11:43] VITALS: RESP 18
--- NOTE | 2020-01-11 15:22 | P.PN ---
Subjective Progress Note Date: 01/11/20 Principal diagnosis: Acute CoVID 19 pneumonitis 44-year-old the male patient with past medical history of type 2 diabetes mellitus, morbid obesity, obstructive sleep apnea on CPAP, GERD/reflux, who came into the hospital on 01/07/2020 with complaints of generalized body aches, shortness of breath and high fevers. Patient states his onset of symptoms was last Thursday, and became progressively worse with increasing shortness of breath and exertional dyspnea. Initial symptom onset was approximately 8 days prior to presentation. In the emergency department patient was febrile with a T-max of 104, chest x-ray showing patchy infiltrates bilaterally, increased inflammatory markers with LDH of 678 and CRP of 153.9. Crit with 19 PCR was positive, d-dimer was 0.61. Patient was started on oral Decadron, vitamin C, zinc supplement, Pepcid, and prophylactic doses of Lovenox at 40 mg every 24 hours for a d-dimer of 0.61. Follow-up chest x-ray today shows improvement in the appearance of infiltrates and within the left upper lobe to a lesser extent in the right upper lobe. Patient states he still dyspneic but overall feeling and breathing better. He has been afebrile overnight. Patient was reevaluated today on 01/10/20, patient feels generally weak, not significantly short of breath, he does have intermittent cough. Patient is mostly complaining of headaches, he is afebrile, his vital signs are stable, and his inflammatory markers are improving. Patient remains on dexamethasone, Lovenox, vitamins, and he declined treatment with remdesivir. The patient is seen today 01/11/2020 in follow-up on the regular medical floor. He is currently sitting up in bed. Awake and alert in no acute distress. He had declined Remdesivir. He remains on dexamethasone and Lovenox. Continue vitamin C, vitamin D, zinc, Pepcid. Currently maintaining O2 saturations in the mid 90s on 2 L/m per nasal cannula. He's remained afebrile. Hemodynamically stable. D-dimer 1.52. Ferritin 1076. LDH 190. C-reactive protein 1.1. Blood glucose 153. X-ray shows persistent low lung volumes with multifocal left greater than right acute infiltrates consistent with CoVID 19 infection. Objective - Vital Signs Vital signs: Vital Signs Temp 97.4 F L 01/11/20 09:43 Pulse 66 01/11/20 09:43 Resp 18 01/11/20 11:43 BP 109/68 01/11/20 09:43 Pulse Ox 91 L 01/11/20 11:43 Intake & Output 01/10/20 01/11/20 01/11/20 18:59 06:59 18:59 Intake Total 500 Balance 500 Intake: Oral 500 Other: Voiding Method Toilet Toilet # Voids 1 # Bowel Movements 1 - Exam GENERAL EXAM: Alert, pleasant 44-year-old gentleman, on 2 L nasal cannula, comfortable in no apparent distress. HEAD: Normocephalic. EYES: Normal reaction of pupils, equal size. NOSE: Clear with pink turbinates. THROAT: No erythema or exudates. NECK: No masses, no JVD. CHEST: No chest wall deformity. LUNGS: Equal air entry with no crackles, wheeze, rhonchi or dullness. CVS: S1 and S2 normal with no audible murmur, regular rhythm. ABDOMEN: No hepatosplenomegaly, normal bowel sounds, no guarding or rigidity. SPINE: No scoliosis or deformity SKIN: No rashes CENTRAL NERVOUS SYSTEM: No focal deficits, tone is normal in all 4 extremities. EXTREMITIES: There is no peripheral edema. No clubbing, no cyanosis. Peripheral pulses are intact. - Labs CBC & Chem 7: 01/07/20 11:32 01/09/20 05:50 Labs: Abnormal Lab Results - Last 24 Hours (Table) 01/10/20 01/10/20 01/11/20 Range/Units 16:46 20:11 05:24 D-Dimer 1.52 H (<0.60) mg/L FEU POC Glucose (mg/dL) 248 H 195 H (75-99) mg/dL Ferritin (22.0-322.0) ng/mL C-Reactive Protein (0.0-0.8) mg/dL 01/11/20 01/11/20 01/11/20 Range/Units 05:24 06:50 11:37 D-Dimer (<0.60) mg/L FEU POC Glucose (mg/dL) 153 H 204 H (75-99) mg/dL Ferritin 1076.9 H (22.0-322.0) ng/mL C-Reactive Protein 1.1 H (0.0-0.8) mg/dL Assessment and Plan Assessment: 1 Acute hypoxic respiratory failure secondary to acute CoVID 19 pneumonitis 2 Morbid obesity 3 Obstructive sleep apnea, noncompliant with CPAP 4 Diabetes mellitus, type II Plan: The patient was seen and evaluated by Dr. Mancilla He had declined Remdesivir Cleared for discharge from the pulmonary standpoint Evaluate for possible home oxygen Complete a 10 day course of dexamethasone Continue vitamin supplements Follow-up with his PCP. I, the cosigning physician, performed a history & physical examination of the patient. Lungs sounds are clear. Maintaining good O2 saturations in the 90s on 2 L/m per nasal cannula. I discussed the assessment and plan of care with my nurse practitioner, Catalina Bautista. I attest to the above note as dictated by her.
--- NOTE | 2020-01-11 23:27 | P.DS ---
Providers Date of admission: 01/07/20 13:10 Attending physician: Panchito Clifton Consults: 01/09/20 09:17 Consult Physician Urgent Consulting Provider: Solo Mancilla Consult Reason/Comments: covid pna Do you want consulting provider notified?: Yes Primary care physician: Stated None Hospital Course: Diagnoses: Acute bilateral upper lobe COVID-19 viral pneumonia. Acute hypoxic respiratory failure secondary to pneumonia Elevated tumor markers Diabetes type 2 [id number] Obstructive sleep apnea on CPAP Morbid obesity with BMI 42.4 GERD Hospital course: This is a pleasant 44 years old male with past medical history of type 2 diabetes mellitus on metformin. Presents with respiratory distress and found to have Covid pneumonia. Chest x-ray showed patchy infiltrates are seen bilaterally.Patient was placed on ascorbic acid, zinc sulfate and dexamethasone 6 mg oral daily as well as prophylactic dose of Lovenox. Patient started feeling better, pulmonary was following the case closely. Then the recommended Remdesivir however patient declined to take it. On the day of discharge patient was saturating 90s on room air. He was checked for home oxygen and he did not qualify for such therapy. No new symptoms. Patient agrees to go home Patient was cleared for discharge by pulmonary service Patient is discharged on zinc sulfate, vitamin C, dexamethasone and symptomatic treatment, please refer to discharge instructions and medications Problems and management plan were discussed with the patient and he verbalized understanding and acceptance Patient was found stable and can be discharged home however he needs follow-up as an outpatient. Patient was instructed to follow up with PCP within one week and with his general dentist Dr. Grmim and a 3-4 weeks Gen: patient is a AAOx3, no distress CVS: S1-S2, RRR, no murmur Lungs: B/L CTA, no wheezing Abdomen: soft, no distention, no tenderness, positive bowel sounds Extremity: no leg edema or induration Time spent more than 35 minutes Patient is a 44-year-old male with a known history of diabetes type 2 [id number], obstructive sleep apnea on CPAP, morbid obesity with BMI 42.4, GERD came to the hospital with complaints of generalized body aches shortness of breath and high fever this morning. Patient has been feeling sick since last Thursday and his symptoms are progressively getting worse with in creased shortness of breath and exertional dyspnea. Patient states that his initial symptoms started about 8 days ago. Patient was having high fever with T- max 104 at home today and due to worsening symptoms patient presented to ER. In the ER on admission blood pressure was 140/79, pulse 107 and temperature nine 9.8 and T-max 102.8 and pulse ox was 91% on room air. Chest x-ray showed patchy infiltrates are seen bilaterally. Correlate for COVID-19 pneumonia. Laboratory test showed WBC 5.3, hemoglobin 14.1 and platelets 185 Sodium 134, potassium 4.4, bicarbonate 27, BUN 11 and creatinine 0.76 LDH is 678 and CRP 153.9 Code 19 PCR detected. 01/08/2020 Patient is currently lying in the bed comfortably. States that he feels better today. Currently on oxygen at 2 L via nasal cannula and saturating around 91 to 92%. Patient is being continued on dexamethasone, Lovenox and vitamin supplementation. Blood sugar is elevated in 200s and Levemir dose was added. D-dimer 0.61 and CRP 14.9. Follow-up labs tomorrow. Subjective: 01/09/2020 01/10/2020 Patient is still being treated for Covid pneumonia. His respiratory efforts look the same 3 yesterday. He was complaining of from some mild headache which is treated symptomatically. Blood pressure 101/62, heart rate 71, breathing at 16-17, afebrile for more than 48 hours and he is saturating 94% on 2 L oxygen via nasal cannula Inflammatory markers still slightly elevated with slight improvement. Sugar is controlled. D-dimer slightly increased from 0.8 up to 1.1 Patient remains on oral dexamethasone, Lovenox and vitamin supplementation. Also patient is on . Patient Condition at Discharge: Fair Plan - Discharge Summary Discharge Rx Participant: No New Discharge Prescriptions: New Dexamethasone [Decadron] 6 mg PO DAILY 6 Days #6 tablet Zinc Sulfate [Orazinc] 220 mg PO DAILY #30 cap Famotidine [Pepcid] 20 mg PO BID #60 tab guaiFENesin-DM 100-10MG/5ML [Robitussin DM] 10 ml PO Q8H #100 ml Acetaminophen Tab [Tylenol] 500 mg PO Q6HR PRN tab PRN Reason: Fever>101 Albuterol Inhaler [Ventolin Hfa Inhaler] 2 puff INHALATION RT-Q6H PRN #1 inh PRN Reason: Shortness Of Breath Or Wheezing Ascorbic Acid [Vitamin C] 1,000 mg PO DAILY #60 tab Continue metFORMIN HCL [Glucophage] 500 mg PO BID Cholecalciferol [Vitamin D3 (25 Mcg = 1000 Iu)] 3,000 unit PO DAILY Potassium Gluconate 99 mg PO DAILY Discontinued Multivitamins, Thera [Multivitamin (formulary)] 1 tab PO DAILY Ascorbic Acid [Vitamin C] 3,000 mg PO DAILY Discharge Medication List metFORMIN HCL [Glucophage] 500 mg PO BID 05/15/16 [History] Cholecalciferol [Vitamin D3 (25 Mcg = 1000 Iu)] 3,000 unit PO DAILY 01/07/20 [History] Potassium Gluconate 99 mg PO DAILY 01/07/20 [History] Acetaminophen Tab [Tylenol] 500 mg PO Q6HR PRN tab 01/11/20 [Rx] Albuterol Inhaler [Ventolin Hfa Inhaler] 2 puff INHALATION RT-Q6H PRN #1 inh 01/11/20 [Rx] Ascorbic Acid [Vitamin C] 1,000 mg PO DAILY #60 tab 01/11/20 [Rx] Dexamethasone [Decadron] 6 mg PO DAILY 6 Days #6 tablet 01/11/20 [Rx] Famotidine [Pepcid] 20 mg PO BID #60 tab 01/11/20 [Rx] Zinc Sulfate [Orazinc] 220 mg PO DAILY #30 cap 01/11/20 [Rx] guaiFENesin-DM 100-10MG/5ML [Robitussin DM] 10 ml PO Q8H #100 ml 01/11/20 [Rx] Follow up Appointment(s)/Referral(s): Jeferson Meehan DO [Doctor of Osteopathic Medicine] - 4 Weeks (office closed at time of discharge. Please call to make appointment) None,Stated [Primary Care Provider] - 1-2 days [facility] [NON-STAFF] - 1 Week (Please follow-up with your primary care doctor, Or call your medical insurance provider to refer you to a nearby primary care doctor) Patient Instructions/Handouts: Viral Pneumonia (DC) Activity/Diet/Wound Care/Special Instructions: Heart healthy diet Activities restricted until you see your doctor Discharge Disposition: HOME SELF-CARE
== END 2020-01-11 18:19 | disposition home or self-care (01) | DRG 177 ==
LOC: EC 10:00 → 4SSUR 13:10
PROVIDERS: ADMIT Internal Medicine; ATTEND Internal Medicine
PROC: XW033E5 Introduction of Remdesivir Anti-infective into Peripheral Vein, Percutaneous Approach, New Technology Group 5 (ICD-10-PCS; principal; 2020-01-09)
DX: U07.1 COVID-19 (principal); J12.89 Other viral pneumonia; J96.01 Acute respiratory failure with hypoxia; Z68.41 Body mass index [BMI] 40.0-44.9, adult; E11.9 Type 2 diabetes mellitus without complications; E66.01 Morbid (severe) obesity due to excess calories; K21.9 Gastro-esophageal reflux disease without esophagitis; G47.33 Obstructive sleep apnea (adult) (pediatric); R97.8 Other abnormal tumor markers; Z91.19 Patient's noncompliance with other medical treatment and regimen; Z79.84 Long term (current) use of oral hypoglycemic drugs; Z79.899 Other long term (current) drug therapy; Z98.890 Other specified postprocedural states; Z88.0 Allergy status to penicillin
CPT/HCPCS: 36415; 71045; 71046; 80048; 80053; 82728; 83605; 83615; 83735; 85025; 85379; 86140; 87502; 87635; 93005; 94640; 99285

== ENCOUNTER → 2021-02-18 | Outpatient (CLI) | payer BC ==
[2021-02-18 14:54] LABS: Basophils # (A) 0.1 k/uL (0-0.2); Basophils % (A) 1 %; Eosinophils # (A) 0.4 k/uL (0-0.7); Eosinophils % (A) 4 %; HCT 48.3 % (39.0-53.0); HGB 16.3 gm/dL (13.0-17.5); Lymphocytes # (A) 1.8 k/uL (1.0-4.8); Lymphocytes % (A) 18 %; MCH 27.9 pg (25.0-35.0); MCHC 33.6 g/dL (31.0-37.0); MCV 83.1 fL (80.0-100.0); Mean Platelet Volume 9.1; Monocytes # (A) 0.4 k/uL (0-1.0); Monocytes % (A) 4 %; Neutrophils # (A) 7.3 k/uL (1.3-7.7); Neutrophils % (A) 73 %; Platelet Count 202 k/uL (150-450); RBC 5.82 m/uL (4.30-5.90)
[2021-02-18 15:03] LABS: African American GFR (CKD) >90 (>60 ml/min/1.73 sqM); Anion Gap 12 mmol/L; Blood Urea Nitrogen 12 mg/dL (9-20); Calcium 9.8 mg/dL (8.4-10.2); Carbon Dioxide 28 mmol/L (22-30); Chloride 97 mmol/L (98-107); Glucose 279 mg/dL (74-99); Non-African American GFR(CKD) >90 (>60 ml/min/1.73 sqM); Potassium 4.9 mmol/L (3.5-5.1); Sodium 137 mmol/L (137-145)
== END | disposition home or self-care (01) ==
LOC: LABPAT 13:13
PROVIDERS: ATTEND Orthopaedic Surgery
DX: Z01.812 Encounter for preprocedural laboratory examination (principal); M23.91 Unspecified internal derangement of right knee
CPT/HCPCS: 36415; 80048; 85025

== ENCOUNTER 2021-02-22 10:11 | Day surgery (SDC) | payer BC, OTHER ==
[2021-02-15 15:10] VITALS: BMI 44.9
--- NOTE | 2021-02-21 12:18 | HP ---
HISTORY AND PHYSICAL CHIEF COMPLAINT: Right knee pain. 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 He notes he hurt himself in basketball practice when he twisted his knee. He is having persistent swelling, stiffness, and pain along with giving way and locking ever since. He notes it bothers him daily and has been using a cane recently. PAST MEDICAL HISTORY: Significant for type 2 diabetes. PAST SURGICAL HISTORY: Significant for right knee arthroscopy. CURRENT MEDICATIONS: Metformin. ALLERGIES: He notes allergy to PENICILLIN. FAMILY HISTORY: Significant for heart disease and cancer. SOCIAL HISTORY: Negative for current tobacco or alcohol use. REVIEW OF SYSTEMS: Sixteen-point review of systems otherwise is reviewed and is noncontributory. PHYSICAL EXAMINATION: On examination, the patient is approximately 6'2", 350 pounds of endomorphic habitus. HEENT exam is nonfocal. Neck is supple. He has painless passive motion of the right hip. Straight leg raise is negative. Active motion right knee -12 to 110 degrees of flexion. He has a moderate effusion. He is tender about the medial joint line. Collaterals are stable, Arnie is negative, Krista's elicits medial pain. His distal neurovascular exam appears intact in the right lower extremity. He does have an antalgic gait pattern. MRI report of the right knee shows evidence of a posterior medial meniscal tear along with mild degenerative changes involving all three compartments. IMPRESSION: 1. Right knee internal derangement with symptomatic medial meniscal tear. 2. Obesity. 3. Non-insulin dependent diabetes. RECOMMENDATIONS: I talked to the patient at length regarding his condition along with treatment options. At this point, he is quite symptomatic, having pain and mechanical symptoms despite previous conservative measures. After thorough discussion, he opts to proceed with surgery. We will plan to proceed with right knee arthroscopy with possible partial medial meniscectomy. We will likely perform that as an outpatient procedure. Risks, benefits were discussed at length in layman's terms. MMODL / IJN: [id number] /
[~2021-02-22 10:11] MED LIST changes: +DEXAMETHASONE SOD PHOSPHATE 4 MG/ML 1 ML VIAL IV ONE; +HYDROmorphone 0.5 MG/0.5 ML SYRINGE IVP PRN; +LACTATED RINGERS 1,000 ML IV SCH; +ONDANSETRON 4 MG/2 ML VIAL IVP ONE; -Pre Op ABX Message 1 EACH MISC MISCELLANE ONE; +ceFAZolin 3 GM in SODIUM CHLORIDE 0.9% 100 ML IVPB PRN
[2021-02-22 11:02] LABS: Glucose,Whole Blood 290 mg/dL (75-99)
[2021-02-22] MEDS ORDERED: INSULIN ASPART (NovoLOG) 100 UNIT/ML VIAL SQ ONE (11:04)
[2021-02-22] MEDS ORDERED: SUCCINYLCHOLINE CHLORIDE VIAL 200 MG/10 ML VIAL IV ONE (11:47)
[2021-02-22] MEDS ORDERED: fentaNYL (PF) 50 MCG/ML 2 ML AMP ONE (11:47)
[2021-02-22] MEDS ORDERED: PROPOFOL 10 MG/ML 20 ML VIAL IV ONE (11:47)
[2021-02-22] MEDS ORDERED: LIDOCAINE 1% INJ 10MG/ML (20 ML MDV) ONE (11:47)
[2021-02-22] MEDS ORDERED: MIDAZOLAM 2 MG/2 ML VIAL ONE (11:47)
[2021-02-22] MEDS ORDERED: LACTATED RINGERS 1,000 ML IV ONE (12:35)
--- NOTE | 2021-02-22 12:45 | P.OP ---
Date of Procedure: 02/22/21 Preoperative Diagnosis: Right knee internal derangement Postoperative Diagnosis: Right knee posterior medial meniscal tear Procedure(s) Performed: Right knee arthroscopic partial medial meniscectomy Anesthesia: JAZMINEA Surgeon: Hamilton Patel Estimated Blood Loss (ml): 10 Pathology: none sent Condition: stable Disposition: PACU Indications for Procedure: The patient is a 45-year-old male presents with progressive right knee pain and mechanical symptoms despite conservative measures. A discussion of the risks and benefits of operative intervention versus continued conservative measures was made with patient. He opted to proceed with surgery. Operative risks to include infection, neurovascular injury, development of blood clots, possible incomplete resolution of symptoms, possible worsening symptoms and need for subsequent procedures was discussed. Informed consent was obtained. Operative Findings: As below Description of Procedure: The patient was brought to the operating room, and after induction of general anesthesia examined the right knee. Collaterals were stable, Arnie was negative, and posterior drawer was negative. The right lower extremity was prepped and draped in a normal fashion. A superior lateral portal was made through a 3 mm skin incision superior and lateral to the patella. This was used for outflow. A lateral portal was made through a 5 mm vertical skin incision lateral to the patella tendon above the joint line. Diagnostic arthroscopy was performed. On inspection of the medial compartment, a complex tear involving the posterior horn medial meniscus was noted with a portion flipped into the notch.. This was debrided back to stable base with straight baskets and a motorized shaver. Grade 2 chondral changes as noted diffusely in the medial compartment. On inspection of the notch, the anterior cruciate ligament appeared to be intact. On inspection of the lateral compartment, the lateral meniscus was stable and intact. On inspection of the patellofemoral artic ulation, minimal degenerative changes were noted. The gutters were clear debris. The knee was then thoroughly irrigated. The portals were closed with Steri-Strips. A sterile dressing was applied in addition to a compression stocking. The patient was awoken from general anesthesia and transferred to recovery room in good condition. Blood loss was estimated at 10 mL. No complications were incurred.
[2021-02-22 13:11] VITALS: TEMP 96.9
[2021-02-22 13:46] LABS: Glucose,Whole Blood 272 mg/dL (75-99)
[2021-02-22 13:47] VITALS: RESP 16
[2021-02-22] MEDS ORDERED: HYDROcodone/APAP 5-325MG 1 EACH TAB ONE (14:26)
[2021-02-22 15:23] VITALS: BP 116/77; PULSE 82
== END 2021-02-22 15:44 | disposition home or self-care (01) ==
LOC: OR 10:11
PROVIDERS: ATTEND Orthopaedic Surgery
DX: S83.241A Other tear of medial meniscus, current injury, right knee, initial encounter (principal); X50.1XXA Overexertion from prolonged static or awkward postures, initial encounter; E11.9 Type 2 diabetes mellitus without complications; K21.9 Gastro-esophageal reflux disease without esophagitis; G47.33 Obstructive sleep apnea (adult) (pediatric); Z98.890 Other specified postprocedural states; Z82.49 Family history of ischemic heart disease and other diseases of the circulatory system; Z80.9 Family history of malignant neoplasm, unspecified; Z79.84 Long term (current) use of oral hypoglycemic drugs; Z88.0 Allergy status to penicillin
CPT/HCPCS: 29881; J2250; J0330; J1100; J0690; J2405; J2001; J3010; J2704; J1170

== ENCOUNTER → 2021-11-06 | Outpatient (CLI) | payer BC ==
--- NOTE | 2021-11-06 14:11 | P.SLEEP ---
History of Present Illness DATE: 11/06/2021 CONSULTATION/NEW PATIENT EVALUATION HISTORY OF PRESENT ILLNESS/SLEEP-WAKE EVALUATION: 46 year old gentleman had been evaluated in the sleep center for possible obstructive sleep apnea hypopnea syndrome. Patient has history of obstructive sleep apnea syndrome diagnosed about 15 years ago in another institution and that time she was started on treatment with CPAP but had difficulties with the CPAP and the stopped using it many years ago. SLEEP SCHEDULE: Usually sleep schedule on weekdays from midnight until 7 AM, during days off from 1 AM until 7-8 AM. FALLING ASLEEP: Sometimes patient has problems with the falling asleep, use to repeat in bedroom. DURING SLEEP: Patient has loud snoring and witnessed episodes of stopped breathing during the sleep. He wakes up from sleep 3 times with nocturia. Usually she sleeps on the back, side position and also in the chair. No history of hypnogogical hallucinations, sleep paralysis, or cataplexy. DURING THE DAY/WAKE STATE: In the morning patient wake up tired, has problems with concentration.. [place] sleepiness scale is 8. Usually patient doesn't t sebas naps. PAST MEDICAL HISTORY: Diabetes, constipation. PAST SURGICAL HISTORY: A right knee arthroscopic surgery for meniscus problems in 1993 and in 2021. MEDICATIONS: Metformin 1000 mg once a day, ozempic. SOCIAL HISTORY: Negative for smoking, alcohol consumption occasional. FAMILY HISTORY: Sleep apnea, flaky liver. REVIEW OF SYSTEMS: Snoring, multiple awakenings from sleep. No fevers. No double vision. No recent chest pain. No shortness of breath. No abdominal pain. No bleeding episodes. No blood in urine. No seizure episodes. PHYSICAL EXAMINATION: GENERAL: A pleasant patient without any distress. VITAL SIGNS: BP 131/87 , HR 91 , RR 16 , weight 371.4 pounds, height 6 foot 2 inches, body mass index 47.6, temperature 95.5, oxygen saturation at room air 96% . HEENT: PERRLA, EOMI. Evaluation of oropharynx showed tongue protrudes midline, low position of soft palate Mallampati 4. NECK: Supple. No JVD. Thyroid is not palpable. 24-1/4 inches in circumference. LUNGS: Clear to percussion and to auscultation. Good air exchange. No wheezing or rhonchi. HEART: S1, S2 regular. No murmurs, gallops or rubs. ABDOMEN: Soft and nontender. Bowel sounds are present. No organomegaly appreciated. EXTREMITIES: No clubbing or cyanosis. GUIDE ALPINE: Awake, alert, and oriented x3. Cranial nerves 2 to 7 intact. There is no fasciculation or atrophy noted. No focal deficits observed. ASSESSMENT: 1. Snoring, multiple awakenings from sleep, extremely low position of soft palate Mallampati 4, extremely wide neck 24-1/4 inches, history of obstructive sleep apnea hypopnea syndrome in the past. Obstructive sleep apnea- hypopnea syndrome. 2. Obesity body mass index 47.6. 3 diabetes mellitus. 4. Status post right knee arthroscopic surgery for meniscus problems. 5 constipation. PLAN: 1. Polysomnography for evaluation of patient's breathing during sleep. 2. CPAP/BiPAP titration if sleep study confirms obstructive sleep apnea- hypopnea syndrome. 3. Preferable position during sleep on the side. 4. No driving if patient feels any sleepiness. Patient is aware of civil and criminal liability for unsafe driving. 5. Sleep hygiene with regular sleep time for at least 7.5-8 hours. 6. Losing weight. Thank you very much for referring this patient for consultation. Sincerely, Chaz Franz MD, PhD, FAASM. Diplomat of [employer], Sleep Medicine Board by [employer] [place] [employer] Behavioral Health Consultant of [facility] [place] Past Medical History Past Medical History: Diabetes Mellitus, GERD/Reflux, Sleep Apnea/CPAP/BIPAP Additional Past Medical History / Comment(s): TYPE 2 DIABETES DIAG. 2016, DOESNT USE HIS CPAP History of Any Multi-Drug Resistant Organisms: None Reported Past Surgical History: Orthopedic Surgery Additional Past Surgical History / Comment(s): ARTHROSCOPY RIGHT KNEE, Past Anesthesia/Blood Transfusion Reactions: No Reported Reaction Smoking Status: Never smoker - Past Family History Mother Family Medical History: No Reported History Medications and Allergies Home Medications Medication Instructions Recorded Confirmed Type metFORMIN HCL [Glucophage] 500 mg PO BID 05/15/16 02/22/21 History Cholecalciferol [Vitamin D3 (25 3,000 unit PO DAILY 01/07/20 02/22/21 History Mcg = 1000 Iu)] Ascorbic Acid [Vitamin C] 1,000 mg PO DAILY #60 tab 01/11/20 02/22/21 Rx Multivitamins, Thera [Multivitamin 1 tab PO DAILY 02/15/21 02/22/21 History (formulary)] Vitamin B Complex 1 each PO DAILY 02/15/21 02/22/21 History HYDROcodone/APAP 5-325MG [[place] 1 tab PO Q6HR PRN #21 tab 02/22/21 Rx 5-325] Allergies Allergy/AdvReac Type Severity Reaction Status Date / Time Penicillins Allergy Rash/Hives Verified 02/22/21 10:28 Sleep Note - Sleep Note Sleep Note: Temperature: Pulse Rate: Respiratory Rate: Blood Pressure: SpO2: Height: Weight: BMI: Neck Circumference:
== END ==
LOC: SLEEP 13:19
PROVIDERS: ATTEND Internal Medicine
DX: G47.33 Obstructive sleep apnea (adult) (pediatric) (principal); E66.9 Obesity, unspecified; Z68.42 Body mass index [BMI] 45.0-49.9, adult; E11.9 Type 2 diabetes mellitus without complications; Z98.890 Other specified postprocedural states; K59.00 Constipation, unspecified; Z79.84 Long term (current) use of oral hypoglycemic drugs; Z88.0 Allergy status to penicillin
CPT/HCPCS: 99211

== ENCOUNTER → 2022-08-20 | Outpatient (CLI) | payer BC ==
--- NOTE | 2022-08-20 16:16 | P.PN ---
Subjective DATE: 08/20/2022 FOLLOW UP VISIT. Patient with obstructive sleep apnea hypopnea syndrome return to sleep center for follow-up visit. Recently patient had sleep study which documented obstructive sleep apnea hypopnea syndrome. Patient was initiated on PAP therapy and today is first visit after treatment was started. Patient was able to use PAP equipment, but not every night. Patient feels better while using CPAP therapy. I explained results of sleep studies to the patient in details. The patient does not have significant problems with the mask, PAP pressure and humidification. [place] sleepiness scale is 4. I checked information from PAP unit. PAP unit pressure 8-16, average 13.6 cm H2O. Usage is 70% and 30 % for more then 4 hours, average 3.75 hours per night. Leak is 27.5 l/m, which is in acceptable range. Apnea Hypopnea Index is 3.0, which is normal. MEDICATIONS:1. Metformin 1000 mg once a day 2. Ozempic During physical exam: GENERAL: A pleasant patient without any distress. VITAL SIGNS: BP 107/72, HR 95, RR 16, weight 364.2, temperature 98.0, oxygen sa turation at room air 96. HEENT: PERRLA, EOMI.low position of soft palate, Mallapati 4 . NECK: Supple. No JVD. LUNGS: Clear to percussion and to auscultation. Good air exchange. No wheezing or rhonchi. HEART: S1, S2 regular. ABDOMEN: Soft and nontender. Obese EXTREMITIES: No clubbing or cyanosis. SELLING SPECIALIST: Awake, alert, and oriented x3. No focal deficit. Impressions: 1. Obstructive sleep apnea-hypopnea syndrome in severe range. Apnea hypopnea index is 74.3 with oxygen saturation of 58.9%. On treatment with the CPAP respiration normalized. Compliance with CPAP therapy decreased. 2. Obesity. 3. Diabetes mellitus. 4. Status post right knee arthroscopic surgery for meniscus problems. Plan: 1. Continue using PAP equipment every night for the whole night. Patient promised to follow recommendations. 2. To change air filter at least 1-2 times per month. 3. PAP unit should stay lower then position of the head. 4. Advised patient to remove all remaining water from humidifier canister daily and make it dry after each usage. Refill canister with fresh distilled water before each usage. 5. Sleep hygiene with regular time in bed for at least 8 hours. 6. Precautions related to driving. No driving if feel any sleepiness. 7. I will maintain prescription for PAP supplies including mask, tube, filters. 8. We will extent trial period with his CPAP unit for another 90 days 9. Watching and losing weight. 10. We'll up visit in 1-2 months. Thank you very much for allowing me to participate in the management of your patient. Chaz Franz MD, PhD, FAASM. Diplomat of [employer], Sleep Medicine Board by [employer] [facility] [place]
== END ==
LOC: 3 N SLEEP 14:49
PROVIDERS: ATTEND Internal Medicine
DX: G47.33 Obstructive sleep apnea (adult) (pediatric) (principal); E66.9 Obesity, unspecified; E11.9 Type 2 diabetes mellitus without complications; Z98.890 Other specified postprocedural states; Z99.89 Dependence on other enabling machines and devices; Z79.84 Long term (current) use of oral hypoglycemic drugs; Z88.0 Allergy status to penicillin
CPT/HCPCS: 99212

== ENCOUNTER → 2022-10-29 | Outpatient (CLI) | payer BC ==
--- NOTE | 2022-10-29 17:37 | P.PN ---
Subjective DATE: 10/29/2022 FOLLOW UP VISIT. Patient with obstructive sleep apnea hypopnea syndrome return to sleep center for follow-up visit. Information from previous visit have been reviewed. Patient is using PAP equipment every night for the whole night, getting PAP supplies in time. The patient does not have significant problems with the mask, PAP unit and humidification. [place] sleepiness scale is 3. I checked information from PAP unit. PAP unit pressure 8-16, average 12.8 cm H2O. Usage is 90% and 70 % for more then 4 hours, average 4.5 hours per night. Leak is 29.2 l/m, which is in acceptable range. Apnea Hypopnea Index is 2.7, which is normal. MEDICATIONS:1. Metformin 1000 mg once a day. During physical exam: GENERAL: A pleasant patient without any distress. VITAL SIGNS: BP 127/82, HR 84, RR 16, weight 359.8, temperature 98.0, oxygen saturation at room air 94 % . HEENT: PERRLA, EOMI.low position of soft palate, Mallapati 4 . NECK: Supple. No JVD. LUNGS: Clear to percussion and to auscultation. Good air exchange. No wheezing or rhonchi. HEART: S1, S2 regular. ABDOMEN: Soft and nontender. Obese EXTREMITIES: No clubbing or cyanosis. CHARGE WEIGHER: Awake, alert, and oriented x3. No focal deficit. Impressions: 1. Obstructive sleep apnea-hypopnea syndrome. Patient demonstrated good compl iance with treatment, benefiting from treatment. 2. Diabetes mellitus. 3. Obesity, patient lost 5 pounds comparing to the previous visit. 4. Status post right knee arthroscopic surgery for meniscus problems. Plan: 1. Continue using PAP equipment every night for the whole night. 2. To change air filter at least 1-2 times per month. 3. PAP unit should stay lower then position of the head. 4. Advised patient to remove all remaining water from humidifier canister daily and make it dry after each usage. Refill canister with fresh distilled water before each usage. 5. Sleep hygiene with regular time in bed for at least 8 hours. 6. Precautions related to driving. No driving if feel any sleepiness. 7. I will maintain prescription for PAP supplies including mask, tube, filters. 8. Follow up visit in 6 months or earlier if patient has any problems. 9. Watching and continue losing weight. Thank you very much for allowing me to participate in the management of your patient. Chaz Franz MD, PhD, FAASM. Diplomat of [employer], Sleep Medicine Board by [employer] Administrator of [facility] [place]
== END ==
LOC: 3 N SLEEP 16:41
PROVIDERS: ATTEND Internal Medicine
DX: G47.33 Obstructive sleep apnea (adult) (pediatric) (principal); E11.9 Type 2 diabetes mellitus without complications; E66.9 Obesity, unspecified; Z79.84 Long term (current) use of oral hypoglycemic drugs; Z99.89 Dependence on other enabling machines and devices; Z98.890 Other specified postprocedural states; Z88.0 Allergy status to penicillin
CPT/HCPCS: 99212